=== PATIENT | female | born 1975 | race African-American/Black ===

== ENCOUNTER 2016-08-12 14:33 | Emergency (ER) | payer OTHER ==
[~2016-08-12 14:33] MED LIST: ATRIPLA PO; FLEXERIL PO
[2016-08-12] MEDS ORDERED: ODEFSEY TABLET1 EACH (14:49)
[2016-08-12] MEDS ORDERED: PRENATAL FORMU1 EAC1 (14:50)
== END 2016-08-12 15:40 | disposition home or self-care (01) ==
LOC: SED 14:33
DX: S40.212A Abrasion of left shoulder, initial encounter (principal); V49.49XA Driver injured in collision with other motor vehicles in traffic accident, initial encounter; Y92.410 Unspecified street and highway as the place of occurrence of the external cause
CPT/HCPCS: 99283